=== PATIENT | female | born 1970 | race Caucasian/White ===

== ENCOUNTER → 2019-12-11 07:55 | Outpatient (CLI) | payer OTHER, SELFPAY ==
--- NOTE | ~2019-12-11 | US_ITS ---
EXAMINATION: US right upper quadrant DATE: 12/11/2019 08:51 INDICATION: Right upper quadrant abdominal pain. TECHNIQUE: Multiple grayscale and Doppler ultrasound images of the abdomen were obtained. COMPARISON: Ultrasound 07/14/2013 FINDINGS: The visualized portions of the head, body, and tail of the pancreas are normal. The abdomin al aorta is normal in caliber. The liver is normal without focal lesion. There is normal flow in main portal vein. The gallbladder is normal in size. No gallstones or gallbladder wall thickening. There was no sonographic Russo sign. Right kidney measures 8.6 x 4.3 x 5.2 cm. Left kidney measures 8.7 x 5.4 x 5.1 cm. The spleen is normal in size. Inferior vena cava is normal. IMPRESSION: 1. Mild atrophy of the kidneys. Reviewed, dictated and finalized at location A. NG DRAFTER
== END ==
PROVIDERS: PCP Family Medicine; Visit Provider Family Medicine
DX: R10.11 Right upper quadrant pain (principal); N26.1 Atrophy of kidney (terminal)
CPT/HCPCS: 76705

== ENCOUNTER 2019-12-13 13:23 | Outpatient (CLI) | payer OTHER, SELFPAY ==
--- NOTE | ~2019-12-13 | NM_ITS ---
EXAMINATION: NM hepatobiliary w pharm EXAM DATE: 12/13/2019 15:40 INDICATION: Right upper quadrant pain. TECHNIQUE: 5 mCi Tc-99m mebrofenin (Choletec) was administered intravenously. Scintigraphic images o f the abdomen were obtained for one hour. At the 1 hour time point, 1.35 mcg sincalide (Kinevac) was administered by slow intravenous infusion, and imaging was continued for 30 minutes. Gallbladder ejec tion fraction was calculated by the technologist. There is no prior study for comparison. FINDINGS: There is normal clearance of radiotracer from the blood pool. There is homogeneous tracer u ptake by the liver. Activity progresses to the gallbladder and bowel. The gallbladder ejection fract ion (GBEF) is 68 % (most patients with gallbladder dysfunction have GBEF < 35%, but there is overlap with the normal range of 10-90%). IMPRESSION: Gallbladder ejection fraction 68%, within normal range. Reviewed, dictated and finalized at location A. [facility]
== END 2019-12-13 13:24 | disposition home or self-care (01) ==
PROVIDERS: PCP Family Medicine; Visit Provider Family Medicine
DX: R10.11 Right upper quadrant pain (principal)
CPT/HCPCS: 78227; A9537; J2805

== ENCOUNTER → 2020-08-01 15:27 | Outpatient (CLI) | payer OTHER, SELFPAY ==
--- NOTE | ~2020-08-01 | MM_ITS ---
EXAMINATION: MM screening indy BI w keegan HISTORY: Screening mammogram TECHNIQUE: Craniocaudal and mediolateral oblique 3-D tomosynthesis images were obtained and synthetic 2-D images were generated. CAD analysis was submitted and interpreted. COMPARISON: 03/27/2019, 01/19/2018, 09/12/2015 bilateral digital screening mammogram examinations BREAST PARENCHYMAL COMPOSITION: The breasts are heterogeneously dense, which may obscure small masses . FINDINGS: New density is suggested in the lower left breast on screening MLO view. Diagnostic left mammogram is recommended, with ultrasound if required. No suspicious mass or architectural distortion, malignant calcification, skin thickening or retractio n or significant new or developing density of either breast is noted otherwise.. IMPRESSION: 1. New asymmetric density on the left 2. Diagnostic left mammogram is recommended, with ultrasound if required BI-RADS Category 0: Incomplete: Needs additional imaging evaluation. Reviewed, dictated and finalized at location A.
== END ==
PROVIDERS: PCP Family Medicine; Visit Provider Obstetrics & Gynecology
DX: Z12.31 Encounter for screening mammogram for malignant neoplasm of breast (principal); R92.8 Other abnormal and inconclusive findings on diagnostic imaging of breast
CPT/HCPCS: 77063; 77067

== ENCOUNTER → 2020-08-19 08:08 | Outpatient (CLI) | payer OTHER, SELFPAY ==
--- NOTE | ~2020-08-19 | MMUS_ITS ---
EXAMINATION: MM diagnostic mammo unilat LT, US breast LT complete HISTORY: Follow-up left breast asymmetries TECHNIQUE: Additional 3-D tomosynthesis images of the left breast were performed and synthetic 2-D im ages were generated. CAD analysis was submitted and interpreted. High resolution left breast ultrasou nd was performed. COMPARISON: Comparison to multiple prior studies sequentially, with oldest reviewed study dated 07/06. BREAST PARENCHYMAL COMPOSITION: The breasts are heterogenously dense, which may obscure small masses. FINDINGS: MAMMOGRAPHIC FINDINGS: There are no suspicious masses, calcifications or architectural distortion in the left breast to sugg est malignancy. ULTRASOUND: Complete left breast ultrasound including the subareolar location: At 4:00, 6 cm from the nipple, the re is an irregular shaped hypoechoic mass measuring 4 mm, most likely benign cluster of microcysts. N o other masses are identified. IMPRESSION: 1. Probable benign left breast mass at 4:00, 6 cm from the nipple. 2. Recommend 6 month follow-up left breast ultrasound, targeted. BI-RADS category 3, probably benign findings. Reviewed, dictated and finalized at location A. IMPRESSION: 1. Probable benign left breast mass at 4:00, 6 cm from the nipple. 2. Recommend 6 month follow-up left breast ultrasound, targeted. BI-RADS category 3, probably benign findings.
== END ==
PROVIDERS: PCP Family Medicine; Visit Provider Obstetrics & Gynecology
DX: R92.8 Other abnormal and inconclusive findings on diagnostic imaging of breast (principal)
CPT/HCPCS: 76641; 77065

== ENCOUNTER 2020-10-12 00:39 | Outpatient (CLI) | payer OTHER, SELFPAY ==
[2020-10-12 19:14] LABS: SARS-CoV-2 RNA PCR Negative
== END 2020-10-12 00:40 | disposition home or self-care (01) ==
LOC: ANHCOVIDDT 00:39
PROVIDERS: PCP Family Medicine; Visit Provider Internal Medicine Gastroenterology
DX: Z01.818 Encounter for other preprocedural examination (principal); Z20.828 Contact with and (suspected) exposure to other viral communicable diseases
CPT/HCPCS: 87635; C9803; U0003

== ENCOUNTER 2020-10-16 01:10 | Day surgery (SDC) | payer OTHER, SELFPAY ==
[2020-10-07 14:09] VITALS: BMI 25.0
[2020-10-16 09:09] VITALS: BP 113/74; PULSE 76; RESP 16; TEMP 36.6; O2SAT 100
--- NOTE | 2020-10-16 09:17 | WPDANESEPPF ---
Anes - Initial Pre Proc Eval Procedure: Operation Date: 10/16/20 10:30 Proposed Procedures p Esophagogastroduodenoscopy & Screening Colonoscopy - Darrion Rahman MD Date/Time: 10/16/20 09:17 Surgeon: Darrion Rahman MD Pre Op Diagnosis: neoplasm screening, GERD Patient Data Age: 50 Gender: F Height: 5 ft 4 in Weight: 66.5 kg Last Vital Signs Temp 97.8 F 10/16/20 09:09 Pulse 76 10/16/20 09:09 Resp 16 10/16/20 09:09 BP 113/74 10/16/20 09:09 Pulse Ox 100 10/16/20 09:09 Allergies Allergy/AdvReac Type Severity Reaction Status Date / Time No Known Allergies Allergy Verified 10/10/20 15:09 Home Medications Medication Instructions Recorded Confirmed Type levonorgestrel-ethinyl estradiol 1 tablet PO DAILY #84 tablet 10/02/20 10/16/20 Rx 90 mcg-20 mcg (28) tablet levocetirizine 5 mg tablet 5 mg PO DAILY 10/10/20 10/16/20 History Patient hx anesthesia problems: none Family hx anesthesia problems: none PMFSH Past Medical History Medical History (Updated 10/16/20 @ 09:18 by Yao Quesada MD) GERD (gastroesophageal reflux disease) Surgical History Surgical History History of dilation and curettage Previous section x 2 Family History Family History Grandparent Family history of malignant neoplasm of breast, Onset Age: 93 Social History Social History Smoking status: Never smoker Second hand tobacco smoke exposure: No Alcohol intake: current Drinks per week: 5 Alcohol use details: wine Living arrangements: with family Gender identity (if verbalized by the patient): Female Spiritual care concerns: No Anes - Eval Final PreProcedure Day of Procedure 10/16/20 09:17 Patient weight: normal Heart: regular rate and rhythm Lungs: clear to auscultation Airway: Mallampati scale class II Neurological: alert and oriented Last oral intake: >/= 8 hours ASA classification: II Emergent: no Anesthetic plan: proceed Anesthesia type and monitoring: general GIVS and standard monitoring Informed Consent: The patient's anesthetic plan and its attendant risks and benefits were discussed with the patient/family/POA. Questions were solicited and answers provided to the satisfaction of the patient/family/POA.
[2020-10-16] MEDS: LACTATED RINGERS 1,000 ML 150 ML IV CONT (09:18)
--- NOTE | 2020-10-16 09:20 | WPDGICN ---
Assessment and Plan Assessment and plan (1) Encounter for screening colonoscopy: Code(s): Z12.11 - Encounter for screening for malignant neoplasm of colon Status: Acute Assessment and Plan: Because of age 49 screening colonoscopy will be performed. Patient has vague lower abdominal pain. That will be assessed at time of endoscopy as well. High-fiber diet is advised at this time. (2) Dyspepsia: Code(s): R10.13 - Epigastric pain Status: Acute Assessment and Plan: Patient has epigastric pain as well as substernal burning. Suggestive of acid reflux. Currently poor response to [id number] antacids. Plan is for EGD to assess more thoroughly. Further recommendations will be given after endoscopy. (3) GERD (gastroesophageal reflux disease): Code(s): K21.9 - Gastro-esophageal reflux disease without esophagitis Status: Acute GI Consult Note Consult date/time: 10/16/20 09:20 HPI: Shasta Charles is a 50 year old female Who has a longstanding history of acid indigestion. She takes Tums regularly. Over the last 1 year she complains of substernal burning pain. She has tried Pepcid intermittently as needed. With uncertain response to therapy. Patient denies any dysphagia, bleeding, or weight loss. She recently underwent gallbladder testing including ultrasound that was unremarkable. Her family history is noncontributory. Patient denies weight loss. She also has a vague lower abdominal discomfort over last month. Her bowel habits are reported be regular. She has no blood in her stools. Plan is for screening colonoscopy and also an EGD to assess her discomfort. Review of Systems Review of Systems: All systems reviewed & are unremarkable except as noted in HPI and below PMFSH Past Medical History Medical History GERD (gastroesophageal reflux disease) Surgical History Surgical History History of dilation and curettage Previous section x 2 Family History Family History Grandparent Family history of malignant neoplasm of breast, Onset Age: 93 Social History Social History (Reviewed 10/10/20 @ 15:10 by ADIA Brand Smoking status: Never smoker Second hand tobacco smoke exposure: No Alcohol intake: current Drinks per week: 5 Alcohol use details: wine Living arrangements: with family Gender identity (if verbalized by the patient): Female Spiritual care concerns: No Meds Home Medications and Allergies Home Medications Medication Instructions Recorded Confirmed Type levonorgestrel-ethinyl estradiol 1 tablet PO DAILY #84 tablet 10/02/20 10/16/20 Rx 90 mcg-20 mcg (28) tablet levocetirizine 5 mg tablet 5 mg PO DAILY 10/10/20 10/16/20 History Allergies Allergy/AdvReac Type Severity Reaction Status Date / Time No Known Allergies Allergy Verified 10/10/20 15:09 Vital Signs Vital Signs - 24 hr 10/16/20 09:09 Temperature 97.8 F Pulse Rate 76 Respiratory Rate 16 Blood Pressure 113/74 Pulse Oximetry 100 Exam Narrative: Exam Narrative: Physical exam reveals patient to be alert. Vital signs stable. HEENT exam unremarkable. Lungs are clear to auscultation and percussion. Heart is without murmur or extra sounds. Abdominal exam bowel sounds are present soft nontender no organomegaly no tenderness. No masses. Digital external rectal exam is normal.
[2020-10-16] MEDS: BENZOCAINE (*SP) 60 ML SPRAY CAN (HURRICAINE) 1 SPRAY MUCOUS MEM (09:25)
[2020-10-16] MEDS: SIMETHICONE ORAL SUSPENSION 20 MG/0.3 ML 30 ML BOTTLE 0.6 ML IRRIGATION (09:49)
[2020-10-16 09:50] VITALS: BP 103/62; PULSE 72; RESP 24; O2SAT 100
[2020-10-16 10:00] VITALS: BP 96/64; PULSE 79; RESP 16; O2SAT 100
[2020-10-16 10:10] VITALS: BP 111/72; PULSE 56; RESP 18; O2SAT 100
== END 2020-10-16 10:20 | disposition home or self-care (01) ==
PROVIDERS: PCP Family Medicine; Visit Provider Internal Medicine Gastroenterology
PROC: 0DJ08ZZ Inspection of Upper Intestinal Tract, Via Natural or Artificial Opening Endoscopic (ICD-10-PCS; CPT 43235; principal; 2020-10-16 10:30)
DX: Z12.11 Encounter for screening for malignant neoplasm of colon (principal); R10.13 Epigastric pain; R10.30 Lower abdominal pain, unspecified; R07.89 Other chest pain; K21.9 Gastro-esophageal reflux disease without esophagitis
CPT/HCPCS: 45378; 43239; 87081; J2704; J7120

== ENCOUNTER 2020-10-17 06:51 | Outpatient (CLI) | payer OTHER, SELFPAY ==
[2020-10-21 07:59] LABS: FSH 0.9 mIU/mL (***)
== END 2020-10-17 06:52 | disposition home or self-care (01) ==
PROVIDERS: PCP Family Medicine; Visit Provider Obstetrics & Gynecology
DX: N95.1 Menopausal and female climacteric states (principal)
CPT/HCPCS: 36415; 83001

== ENCOUNTER → 2021-05-27 14:54 | Outpatient (CLI) | payer OTHER, SELFPAY ==
--- NOTE | ~2021-05-27 | US_ITS ---
US breast LT limited 05/27/2021 15:11 Indication: Follow-up left breast mass Procedure: High-resolution Limited left breast ultrasound Comparison: 08/19/2020 Findings: At 4:00, 6 cm from the nipple, there is an oval heterogeneous hypoechoic mass with internal cystic changes measuring 6 x 4 x 7 mm without significant change from prior study allowing for diffe rences of technique. This likely represents a cluster of microcysts. Impression: 1: Probable benign cluster of microcysts of the left breast at 4:00, 6 cm from the nipple. BI-RADS CATEGORY 3-PROBABLY BENIGN FINDING RECOMMENDATION: Six-month follow-up bilateral screening mammogram and left breast ultrasound recommen ded. Reviewed, dictated and finalized at location A. Impression: 1: Probable benign cluster of microcysts of the left breast at 4:00, 6 cm from the nipple. BI-RADS CATEGORY 3-PROBABLY BENIGN FINDING RECOMMENDATION: Six-month follow-up bilateral screening mammogram and left [facility] [facility] ultrasound recommended.
== END ==
PROVIDERS: PCP Family Medicine; Visit Provider Obstetrics & Gynecology
DX: R92.8 Other abnormal and inconclusive findings on diagnostic imaging of breast (principal)
CPT/HCPCS: 76642

== ENCOUNTER → 2021-08-04 16:45 | Outpatient (CLI) | payer OTHER, SELFPAY ==
--- NOTE | ~2021-08-04 | MM_ITS ---
EXAMINATION: MM screening indy BI w keegan HISTORY: Screening TECHNIQUE: Craniocaudal and mediolateral oblique 3-D tomosynthesis images were obtained and synthetic 2-D images were generated. CAD analysis was submitted and interpreted. COMPARISON: Comparison to multiple prior studies sequentially, with oldest reviewed study dated 07/23. BREAST PARENCHYMAL COMPOSITION: The breasts are heterogeneously dense, which may obscure small masses . FINDINGS: There is subtle asymmetries with possible architectural distortion in the outer aspect of t he left breast on CC view. The right breast is stable without evidence for malignancy. IMPRESSION: 1. Subtle left breast asymmetries centered in the outer aspect of the breast. 2. Additional mammographic views and possible breast ultrasound are recommended. BI-RADS Category 0: Incomplete: Needs additional imaging evaluation. Reviewed, dictated and finalized at location A. IMPRESSION: 1. Subtle left breast asymmetries centered in the outer aspect of the breast. 2. Additional mammographic views and possible breast ultrasound are recommended . BI-RADS Category 0: Incomplete: Needs additional imaging evaluation.
== END ==
PROVIDERS: Visit Provider Obstetrics & Gynecology
DX: Z12.31 Encounter for screening mammogram for malignant neoplasm of breast (principal); R92.8 Other abnormal and inconclusive findings on diagnostic imaging of breast
CPT/HCPCS: 77063; 77067

== ENCOUNTER → 2021-11-28 14:18 | Outpatient (CLI) | payer OTHER, SELFPAY ==
--- NOTE | ~2021-11-28 | MMUS_ITS ---
EXAMINATION: MM diagnostic indy LT w keegan, US breast LT limited HISTORY: Follow-up left breast asymmetries TECHNIQUE: Additional 3-D tomosynthesis images of the left breast were performed and synthetic 2-D im ages were generated. CAD analysis was submitted and interpreted. High resolution Limited left breast ultrasound was performed. COMPARISON: Comparison to multiple prior studies sequentially, with oldest reviewed study dated 03/2015. BREAST PARENCHYMAL COMPOSITION: The breasts are heterogenously dense, which may obscure small masses FINDINGS: MAMMOGRAPHIC FINDINGS: . There are no suspicious masses, calcifications or architectural distortion in the left breast to tariq ggest malignancy. ULTRASOUND: Limited left breast ultrasound: Normal heterogeneous echotexture without focal solid or cystic mass. IMPRESSION: 1. No evidence for malignancy in the left breast. 2. Routine yearly screening mammogram and regular clinical breast examination are recommended. BI-RADS Category 1: Negative Reviewed, dictated and finalized at location A. SPECIALIST IMPRESSION: 1. No evidence for malignancy in the left breast. 2. Routine yearly screening mammogram and regular clinical breast examination a re recommended. BI-RADS Category 1: Negative
== END ==
PROVIDERS: PCP Family Medicine; Visit Provider Obstetrics & Gynecology
DX: R92.8 Other abnormal and inconclusive findings on diagnostic imaging of breast (principal)
CPT/HCPCS: 76642; 77061; 77065; G0279

== ENCOUNTER 2022-06-01 15:41 | Outpatient (CLI) | payer OTHER, SELFPAY ==
[2022-06-03 20:21] LABS: FSH 52.6 mIU/mL (***)
== END 2022-06-01 15:42 | disposition home or self-care (01) ==
LOC: ANHLAB 15:44
PROVIDERS: PCP Family Medicine; Visit Provider Obstetrics & Gynecology
DX: N95.1 Menopausal and female climacteric states (principal)
CPT/HCPCS: 36415; 83001

== ENCOUNTER 2022-06-24 14:41 | Outpatient (RCR) | payer OTHER, SELFPAY ==
--- NOTE | 2022-06-24 15:57 | PTOPEVAL ---
PHYSICAL THERAPY EVALUATION Thank you for referring Shasta Charles to [facility].? Please review, sign, date and return this plan of care ADRIANNE. I agree with and certify that the following plan of care is medically necessary. Referring Physician Date Attending Provider: Talib Martin MD Diagnosis perineal pain Onset 02/2022 Subjective Information Reports that she has pain in Query Text:As Reported By Patient/ right side perineum with Family intercourse. Reports that the pain is only with intercourse. on a diagram points to the right pelvic floor muscles and states that her physician was able to palpate the painful spot. She reports an increase in urinary leakage 2-3 months and reports that she goes to the bathroom very frequently and sometimes she will notice that she has to go right away or she will leak. Reports that she will go several time before going on a car ride or before a run. States she does not leak while exercising. Lower Extremity Range of Motion General Lower Extremity Range of Motion Gross Lower Extremity Range of Motion limited external and internal Comments rotation bilaterally; left hip KEM demonstrates an impingement symtpoms; Lower Extremity Muscle Strength Testing Hip Strength Left Hip Flexion Strength 5 Normal Hip Extension Strength 4+ Good + Hip Abduction Strength 4+ Good + Hip Medial Rotation Strength 5 Normal Hip Lateral Rotation Strength 4+ Good + Right Hip Flexion Strength 4+ Good + Hip Extension Strength 4+ Good + Hip Abduction Strength 5 Normal Hip Medial Rotation Strength 4+ Good + Hip Lateral Rotation Strength 4+ Good + Knee Strength Bilateral Knee Flexion Strength 5 Normal Knee Extension Strength 5 Normal Muscle Length Testing Muscle Length Testing Boyd Test Shortened Muscles Short (R) Iliopsoas,Short (L) Iliopsoas,Short (R) Rectus Femoris,Short (L) Rectus Femoris Piriformis w/Hip Flexion >90 Degrees (R) Moderate Tightness,(L) Moderate Tightness Left Hamstring Length -40 Query Text:(90 - 90 Position) Right Hamstring Length -40 Query Text:(90 - 90 Pos
== END 2022-09-07 11:54 | disposition home or self-care (01) ==
LOC: ANHPT 14:41
PROVIDERS: PCP Family Medicine; Visit Provider Obstetrics & Gynecology
DX: R10.2 Pelvic and perineal pain (principal)
CPT/HCPCS: 97112; 97162

== ENCOUNTER → 2022-08-17 14:32 | Outpatient (CLI) | payer OTHER, SELFPAY ==
--- NOTE | ~2022-08-17 | XR_ITS ---
EXAMINATION:XR cervical spine 4-5V DATE: 08/17/2022 14:46 INDICATION: Neck pain TECHNIQUE: AP, lateral, lateral swimmers and odontoid views of the cervical spine are provided. COMPARISON: 03/24/2012 FINDINGS: There is reversal of the normal cervical lordosis. There are 2 mm of anterolisthesis of C4 on C5. The odontoid is intact. No fracture is identified. The vertebral body heights are normal. Ther e is mild loss of intervertebral disc space height at C5-6. Small degenerative osteophytes project fr om the anterior endplates of multiple vertebral bodies. There is mild facet osteoarthritis at C5-6. P revertebral soft tissues are normal. IMPRESSION: 1. Mild cervical spondylosis without acute findings. Reviewed, dictated and finalized at location A.
== END ==
PROVIDERS: PCP Physician Assistant; Visit Provider Physician Assistant
DX: M47.892 Other spondylosis, cervical region (principal)
CPT/HCPCS: 72050

== ENCOUNTER → 2022-09-08 15:00 | Outpatient (CLI) | payer OTHER, SELFPAY ==
--- NOTE | ~2022-09-08 | MR_ITS ---
EXAMINATION: MR cervical spine wo con DATE: 09/08/2022 15:35 INDICATION: Cervical radiculopathy. TECHNIQUE: Magnetic resonance imaging (MRI) of the cervical spine was performed without intravenous c ontrast. Sequences included sagittal T2-weighted FSE, sagittal T2-weighted FS FSE, sagittal T1-weight ed FSE, axial MERGE, and axial T2-weighted FSE. COMPARISON: Cervical spine radiographs 08/17/2022 FINDINGS: There is 4 degrees levocurvature of cervical spine. There is kyphosis of cervical spine. Ve rtebral body heights are normal. There is mildly decreased disc height at C4-C5, C5-C6, and C6-C7. Th e spinal cord signal intensity is normal. The following disc levels are specifically discussed: C2-C3: The disc does not extend beyond the endplate margin. There is no uncovertebral joint osteoarth ritis. There is mild right and moderate left facet joint osteoarthritis. There is no neural foraminal stenosis. There is no central canal stenosis. C3-C4: The disc does not extend beyond the endplate margin. There is mild left uncovertebral joint os teoarthritis. There is moderate right and mild left facet joint osteoarthritis. There is mild right n eural foraminal stenosis. There is no central canal stenosis. C4-C5: There is a central protrusion. There is mild bilateral uncovertebral joint osteoarthritis. The re is mild bilateral facet joint osteoarthritis. There is no neural foraminal stenosis. There is mild central canal stenosis. C5-C6: There is a left central protrusion. There is moderate left uncovertebral joint osteoarthritis. There is no facet joint osteoarthritis. There is mild left neural foraminal stenosis. There is mild central canal stenosis with ventral indentation of the spinal cord. C6-C7: The disc is bulging with superimposed left central extrusion. There is mild left uncovertebral joint osteoarthritis. There is no facet joint osteoarthritis. There is mild left neural foraminal st enosis. There is mild central canal stenosis with ventral indentation of the spinal cord. There is mo derate stenosis of left lateral recess. C7-T1: The disc does not extend beyond the endplate margin. There is no uncovertebral joint osteoarth ritis. There is moderate bilateral facet joint osteoarthritis. There is mild bilateral neural foramin al stenosis. There is no central canal stenosis. IMPRESSION: 1. Moderate stenosis of left lateral recess at C6-C7. Otherwise mild cervical spondylosis. Reviewed, dictated and finalized at location A. IMPRESSION: 1. Moderate stenosis of left lateral recess at C6-C7. Otherwise mild cervical s pondylosis.
== END ==
PROVIDERS: PCP Family Medicine; Visit Provider Physical Medicine & Rehabilitation
DX: M47.22 Other spondylosis with radiculopathy, cervical region (principal)
CPT/HCPCS: 72141

== ENCOUNTER → 2022-12-23 11:35 | Outpatient (CLI) | payer OTHER, SELFPAY ==
--- NOTE | ~2022-12-23 | MM_ITS ---
EXAMINATION: MM screening indy BI w keegan HISTORY: Screening mammogram TECHNIQUE: Craniocaudal and mediolateral oblique 3-D tomosynthesis images were obtained and synthetic 2-D images were generated. CAD analysis was submitted and interpreted. COMPARISON: 11/28/2021 diagnostic left mammogram and limited left breast ultrasound 08/04/2021 bilateral screening mammogram 05/27/2021 Limited left breast ultrasound 08/19/2020 diagnostic left mammogram and complete left breast ultrasound 07/28/2020 bilateral screening mammogram BREAST PARENCHYMAL COMPOSITION: The breasts are heterogeneously dense, which may obscure small masses . FINDINGS: There is no evidence of suspicious mass, calcification, or architectural distortion to sugg est malignancy in either breast. There has been no suspicious interval change. IMPRESSION: 1. No mammographic evidence of malignancy. 2. Recommend routine screening mammography in one year. BI-RADS Category 1: Negative Reviewed, dictated and finalized at location A. UT SORTER
== END ==
PROVIDERS: PCP Family Medicine; Visit Provider Obstetrics & Gynecology
DX: Z12.31 Encounter for screening mammogram for malignant neoplasm of breast (principal)
CPT/HCPCS: 77063; 77067

== ENCOUNTER 2024-03-20 15:07 | Outpatient (CLI) | payer OTHER, SELFPAY ==
--- NOTE | ~2024-03-20 | MM_ITS ---
EXAMINATION: MM screening indy BI w keegan HISTORY: Screening mammogram TECHNIQUE: Craniocaudal and mediolateral oblique 3-D tomosynthesis images were obtained and synthetic 2-D images were generated. CAD analysis was submitted and interpreted. COMPARISON: December 23, 2022 bilateral screening mammogram November 28, 2021 diagnostic left mammogram and limited left breast ultrasound examination, reported n egative August 04, 2021 bilateral screening mammogram BREAST PARENCHYMAL COMPOSITION: The breasts are heterogeneously dense, which may obscure small masses . FINDINGS: There is no evidence of suspicious mass, calcification, or architectural distortion to sugg est malignancy in either breast. There has been no suspicious interval change. IMPRESSION: 1. No mammographic evidence of malignancy. 2. Recommend routine screening mammography in one year. BI-RADS Category 1: Negative Reviewed, dictated and finalized at location A.
== END 2024-03-20 15:08 ==
PROVIDERS: PCP Family Medicine; Visit Provider Obstetrics & Gynecology
DX: Z12.31 Encounter for screening mammogram for malignant neoplasm of breast (principal)
CPT/HCPCS: 77063; 77067

== ENCOUNTER 2025-03-22 15:14 | Outpatient (CLI) | payer OTHER, SELFPAY ==
--- NOTE | ~2025-03-22 | MM_ITS ---
EXAMINATION: MM screening indy BI w keegan HISTORY: Screening TECHNIQUE: Craniocaudal and mediolateral oblique 3-D tomosynthesis images were obtained and synthetic 2-D images were generated. CAD analysis was submitted and interpreted. COMPARISON: Comparison to multiple prior studies sequentially, with oldest reviewed study dated 08/01. BREAST PARENCHYMAL COMPOSITION: Dense: The breasts are heterogeneously dense, which may obscure small masses FINDINGS: There is no evidence of suspicious mass, calcification, or architectural distortion to sugg est malignancy in either breast. There has been no suspicious interval change. IMPRESSION: 1. No mammographic evidence of malignancy. 2. Recommend routine screening mammography in one year. BI-RADS Category 1: Negative Reviewed, dictated and finalized at location A.
== END 2025-03-22 15:15 | disposition home or self-care (01) ==
LOC: MICIMG 15:15
PROVIDERS: PCP Obstetrics & Gynecology; Visit Provider Family Medicine
DX: Z12.31 Encounter for screening mammogram for malignant neoplasm of breast (principal)
CPT/HCPCS: 77063; 77067